=== PATIENT | female | born 1990 | race Two or more races ===

== ENCOUNTER 2017-11-10 22:33 | Emergency (ER) | payer MEDICAID, OTHER ==
[~2017-11-10] VITALS: Ht 162.6 cm; Wt 110.5 kg
[~2017-11-10 22:33] MED LIST: ACET-1008 PO; ALBU8.5H8 IH; AZIT250T PO; IBUP-1984 PO; NITR0.4T51 SL
[2017-11-10 22:46] VITALS: BP 121/66
[2017-11-10] MEDS ORDERED: NEOM28.44 TP (23:31)
== END 2017-11-10 23:39 | disposition home or self-care (01) ==
LOC: ER 22:33
DX: T21.22XA Burn of second degree of abdominal wall, initial encounter (principal); J45.909 Unspecified asthma, uncomplicated; I25.2 Old myocardial infarction; Z90.49 Acquired absence of other specified parts of digestive tract; Z88.8 Allergy status to other drugs, medicaments and biological substances; Z79.899 Other long term (current) drug therapy; X10.2XXA Contact with fats and cooking oils, initial encounter; Y93.G3 Activity, cooking and baking; Y92.000 Kitchen of unspecified non-institutional (private) residence as the place of occurrence of the external cause; Y99.8 Other external cause status
CPT/HCPCS: 99283

== ENCOUNTER 2018-12-18 16:42 | Emergency (ER) | payer SELFPAY ==
[~2018-12-18] VITALS: Ht 162.6 cm; Wt 116.8 kg
[~2018-12-18 16:42] MED LIST changes: +NEOM28.44 TP
[2018-12-18 16:49] VITALS: BP 135/86
[2018-12-18] MEDS ORDERED: fluconazole 150mg tablet PO ONE (17:05)
[2018-12-18 17:20] LABS: URINE HCG NEGATIVE (NEG)
[2018-12-18 17:23] LABS: CLARITY,URINE SLIGHTLY CLOUDY (Clear); COLOR,URINE YELLOW (Yellow); GLUCOSE, URINE NEGATIVE (Neg); KETONES,URINE NEGATIVE (Neg); LEUKOCYTE ESTERASE ,URINE LARGE (Neg); NITRITES, URINE NEGATIVE (Neg); OCCULT BLOOD,URINE TRACE-INTACT (Neg); PH,URINE 5.5 (4.8-8.0); PROTEIN,URINE NEGATIVE (Neg); UROBILINOGEN,URINE 0.2 E.U/dL (0.2-1.0)
[2018-12-18 17:26] LABS: UA COLLECTION TYPE CLN CATCH MIDSTREAM
[2018-12-18 17:33] LABS: SQUAMOUS EPITHELIAL CELL,UR MANY /LPF (FEW)
[2018-12-18 17:37] LABS: BACTERIA,URINE 1+ /HPF (Neg)
[2018-12-18 17:38] LABS: RBC,URINE 0-2 /HPF (0-2)
[2018-12-18] MEDS ORDERED: PHEN-824 PO (17:46)
[2018-12-18] MEDS ORDERED: FLUC150T66 PO (17:46)
== END 2018-12-18 18:01 | disposition home or self-care (01) ==
LOC: ER 16:42
DX: N89.8 Other specified noninflammatory disorders of vagina (principal); I25.2 Old myocardial infarction; J45.909 Unspecified asthma, uncomplicated; F10.99 Alcohol use, unspecified with unspecified alcohol-induced disorder; Z90.49 Acquired absence of other specified parts of digestive tract; Z98.890 Other specified postprocedural states; Z88.8 Allergy status to other drugs, medicaments and biological substances; Z79.899 Other long term (current) drug therapy; Y90.9 Presence of alcohol in blood, level not specified
CPT/HCPCS: 81001; 81025; 99283

== ENCOUNTER 2019-11-03 21:35 | Emergency (ER) | payer SELFPAY ==
[~2019-11-03] VITALS: Ht 162.6 cm; Wt 121.4 kg
[~2019-11-03 21:35] MED LIST changes: +PHEN-824 PO
[2019-11-03] MEDS ORDERED: diphenhydrAMINE 50 mg/ml inj IM ONE (21:50)
[2019-11-03 22:45] VITALS: BP 150/93
== END 2019-11-03 23:21 | disposition home or self-care (01) ==
LOC: ER 21:39
DX: T78.40XA Allergy, unspecified, initial encounter (principal); R20.0 Anesthesia of skin; R22.9 Localized swelling, mass and lump, unspecified; I25.2 Old myocardial infarction; J45.909 Unspecified asthma, uncomplicated; Z90.49 Acquired absence of other specified parts of digestive tract; Z98.890 Other specified postprocedural states; Z72.89 Other problems related to lifestyle; Z88.8 Allergy status to other drugs, medicaments and biological substances; Z79.2 Long term (current) use of antibiotics; Z79.899 Other long term (current) drug therapy
CPT/HCPCS: 96372; 99283; J1200

== ENCOUNTER 2020-06-15 18:02 | Emergency (ER) | payer OTHER ==
[~2020-06-15] VITALS: Ht 162.6 cm; Wt 112.4 kg
[2020-06-15 18:10] VITALS: BP 118/91
== END 2020-06-15 19:13 | disposition home or self-care (01) ==
LOC: ER 18:03
DX: Z02.89 Encounter for other administrative examinations (principal); R11.0 Nausea; I25.2 Old myocardial infarction; J45.909 Unspecified asthma, uncomplicated; Z90.49 Acquired absence of other specified parts of digestive tract; Z98.890 Other specified postprocedural states; Z72.89 Other problems related to lifestyle; Z88.8 Allergy status to other drugs, medicaments and biological substances; Z79.2 Long term (current) use of antibiotics; Z79.899 Other long term (current) drug therapy
CPT/HCPCS: 99281

== ENCOUNTER 2020-06-18 09:25 | Emergency (ER) | payer OTHER ==
[~2020-06-18] VITALS: Ht 162.6 cm; Wt 111.4 kg
--- NOTE | 2020-06-18 09:52 | NUR ---
Spoke with Dr. Mckeon and updated on pt status and pt HR. To place EKG order, to order further work-up
[2020-06-18 10:42] LABS: BASOPHILS # (AUTO) 0.1 X10'3 (0-0.2); BASOPHILS % (AUTO) 0.6 % (0-1); EOSINOPHILS # (AUTO) 0.2 X10'3 (0-0.9); HEMATOCRIT 51.9 % (35.0-45.0); HEMOGLOBIN 17.6 g/dl (12.0-16.0); LYMPHOCYTES # (AUTO) 1.2 X10'3 (1.1-4.8); LYMPHOCYTES % (AUTO) 8.1 % (21-51); MEAN CORPUSCULAR HEMOGLOBIN 29.5 PG (27.0-31.0); MEAN CORPUSCULAR VOLUME 86.9 FL (78-98); MEAN PLATELET VOLUME 10.9 FL (7.4-10.4); MONOCYTES # (AUTO) 1.4 X10'3 (0-0.9); MONOCYTES % (AUTO) 9.3 % (2-12); NEUTROPHILS # (AUTO) 12.2 X10'3 (1.8-7.7); PLATELET COUNT 308 X10'3 (140-440); RED BLOOD COUNT 5.98 X10'6 (4.20-5.60); RED CELL DISTRIBUTION WIDTH 13.5 % (11.5-14.5); WHITE BLOOD COUNT 15.1 X10'3 (4.5-11.0)
[2020-06-18 10:54] LABS: D-DIMER 3.93 MG/L FEU (0-0.50)
[2020-06-18] MEDS ORDERED: metoclopramide 5 mg/ml inj IV ONE (11:00)
[2020-06-18 11:03] LABS: ALANINE AMINOTRANSFERASE 291 U/L (12-78); ALBUMIN 4.2 G/DL (3.4-5.0); ALKALINE PHOSPHATASE 71 IU/L (46-116); ANION GAP 18 (8-16); ASPARTATE AMINO TRANSFERASE 103 U/L (10-37); BILIRUBIN,TOTAL 0.7 MG/DL (0.1-1.0); BLOOD UREA NITROGEN 13 MG/DL (7-18); BUN/CREATININE RATIO 12.3 (6.6-38.0); CALCIUM 9.7 MG/DL (8.5-10.1); CHLORIDE 101 MMOL/L (99-107); CREATININE 1.06 MG/DL (0.40-0.90); GLUCOSE 115 MG/DL (70-104); SODIUM 135 MMOL/L (135-145); TOTAL CARBON DIOXIDE 16.5 MMOL/L (24-32); TOTAL PROTEIN 8.6 G/DL (6.4-8.2); eGFR 60 ML/MIN
[2020-06-18 11:05] LABS: LIPASE 862 U/L (73-393); TROPONIN I < 0.04 NG/ML (0.0-0.05)
[2020-06-18 11:17] LABS: LARGE PLATELETS FEW; PLATELET ESTIMATE NORMAL
[2020-06-18 11:30] LABS: HCG SERUM QL NEGATIVE
[2020-06-18] MEDS ORDERED: iohexol 350MG/ML 100ml bottle IV ONE (11:35)
[2020-06-18 12:35] LABS: CLARITY,URINE CLEAR (Clear); COLOR,URINE YELLOW (Yellow); GLUCOSE, URINE NEGATIVE (Neg); KETONES,URINE >=80 mg/dl (Neg); LEUKOCYTE ESTERASE ,URINE NEGATIVE (Neg); NITRITES, URINE NEGATIVE (Neg); OCCULT BLOOD,URINE TRACE-INTACT (Neg); PROTEIN,URINE 100 mg/dl (Neg); UROBILINOGEN,URINE 0.2 E.U/dL (0.2-1.0)
[2020-06-18 12:38] LABS: UA COLLECTION TYPE CLN CATCH MIDSTREAM
[2020-06-18 12:54] LABS: BACTERIA,URINE FEW /HPF (Neg); HYALINE CASTS 0-3 /LPF (NEGATIVE); RBC,URINE 0-2 /HPF (0-2); SQUAMOUS EPITHELIAL CELL,UR MANY /LPF (FEW); WBC,URINE 0-4 /HPF (0-4)
[2020-06-18 12:55] LABS: MUCUS STRANDS FEW /LPF (Neg)
[2020-06-18] MEDS ORDERED: normal saline 1000ml 1,000 ML IV ONE (13:15)
[2020-06-18] MEDS ORDERED: METO-292 PO (14:06)
[2020-06-18 14:09] VITALS: BP 118/88
== END 2020-06-18 15:40 | disposition home or self-care (01) ==
LOC: ER 09:26
DX: R11.2 Nausea with vomiting, unspecified (principal); R07.89 Other chest pain; R06.02 Shortness of breath; Z20.822 Contact with and (suspected) exposure to COVID-19; I25.2 Old myocardial infarction; J45.909 Unspecified asthma, uncomplicated; Z90.49 Acquired absence of other specified parts of digestive tract; Z98.890 Other specified postprocedural states; Z72.89 Other problems related to lifestyle; Z88.8 Allergy status to other drugs, medicaments and biological substances; Z79.82 Long term (current) use of aspirin; Z79.899 Other long term (current) drug therapy; Z98.84 Bariatric surgery status
CPT/HCPCS: 36415; 71045; 71275; 74177; 80053; 81001; 83690; 83880; 84484; 84703; 85008; 85025; 85379; 87635; 93005; 93308; 96361; 96374; 99285; C9803; J2765; J7030; Q9967

== ENCOUNTER 2020-06-20 14:03 | Emergency (ER) | payer OTHER ==
[~2020-06-20] VITALS: Ht 162.6 cm; Wt 111.4 kg
[~2020-06-20 14:03] MED LIST changes: +METO-292 PO
[2020-06-20 16:51] LABS: BASOPHILS # (AUTO) 0.1 X10'3 (0-0.2); BASOPHILS % (AUTO) 0.6 % (0-1); EOSINOPHILS # (AUTO) 0.2 X10'3 (0-0.9); EOSINOPHILS % (AUTO) 1.1 % (0-6); HEMATOCRIT 47.4 % (35.0-45.0); HEMOGLOBIN 16.3 g/dl (12.0-16.0); LYMPHOCYTES # (AUTO) 1.5 X10'3 (1.1-4.8); LYMPHOCYTES % (AUTO) 10.4 % (21-51); MEAN CORPUSCULAR HEMOGLOBIN 29.1 PG (27.0-31.0); MEAN CORPUSCULAR HGB CONC 34.3 g/dL (33.0-36.5); MEAN CORPUSCULAR VOLUME 84.8 FL (78-98); MEAN PLATELET VOLUME 10.7 FL (7.4-10.4); MONOCYTES # (AUTO) 1.4 X10'3 (0-0.9); MONOCYTES % (AUTO) 9.7 % (2-12); NEUTROPHILS # (AUTO) 11.4 X10'3 (1.8-7.7); NEUTROPHILS % (AUTO) 78.2 % (42-75); PLATELET COUNT 275 X10'3 (140-440); RED BLOOD COUNT 5.59 X10'6 (4.20-5.60); RED CELL DISTRIBUTION WIDTH 13.4 % (11.5-14.5); WHITE BLOOD COUNT 14.6 X10'3 (4.5-11.0)
[2020-06-20 17:01] LABS: ALANINE AMINOTRANSFERASE 307 U/L (12-78); ALKALINE PHOSPHATASE 65 IU/L (46-116); ANION GAP 17 (8-16); ASPARTATE AMINO TRANSFERASE 102 U/L (10-37); BILIRUBIN,TOTAL 0.7 MG/DL (0.1-1.0); BLOOD UREA NITROGEN 14 MG/DL (7-18); BUN/CREATININE RATIO 15.1 (6.6-38.0); CALCIUM 9.5 MG/DL (8.5-10.1); CHLORIDE 105 MMOL/L (99-107); CREATININE 0.93 MG/DL (0.40-0.90); GLUCOSE 114 MG/DL (70-104); LIPASE 810 U/L (73-393); POTASSIUM 3.5 MMOL/L (3.5-5.1); SODIUM 139 MMOL/L (135-145); TOTAL CARBON DIOXIDE 16.6 MMOL/L (24-32); eGFR 70 ML/MIN
[2020-06-20] MEDS ORDERED: proCHLORperazine 10 MG/2 ml inj IV ONE (17:10)
[2020-06-20] MEDS ORDERED: LORazepam 2 mg/ml vial IV ONE (17:10)
[2020-06-20] MEDS ORDERED: normal saline 1000ML IV soln IVB ONE (17:10)
[2020-06-20 17:21] LABS: URINE HCG NEGATIVE (NEG)
[2020-06-20 17:41] LABS: CLARITY,URINE CLOUDY (Clear); GLUCOSE, URINE NEGATIVE (Neg); KETONES,URINE >=80 mg/dl (Neg); LEUKOCYTE ESTERASE ,URINE NEGATIVE (Neg); NITRITES, URINE NEGATIVE (Neg); OCCULT BLOOD,URINE TRACE-INTACT (Neg); PROTEIN,URINE 100 mg/dl (Neg)
[2020-06-20 17:44] LABS: UA COLLECTION TYPE CLN CATCH MIDSTREAM
[2020-06-20 17:45] LABS: COLOR,URINE DARK YELLOW (Yellow)
[2020-06-20 17:51] LABS: BACTERIA,URINE 1+ /HPF (Neg); MUCUS STRANDS MANY /LPF (Neg); RBC,URINE 0-2 /HPF (0-2); SQUAMOUS EPITHELIAL CELL,UR MANY /LPF (FEW)
[2020-06-20 17:54] VITALS: BP 133/83
[2020-06-20] MEDS ORDERED: PROC25SU31 RC (18:03)
[2020-06-20] MEDS ORDERED: CLOT10TR5 PO (19:09)
== END 2020-06-20 19:15 | disposition home or self-care (01) ==
LOC: ER 14:04
DX: R53.83 Other fatigue (principal); R11.2 Nausea with vomiting, unspecified; K91.89 Other postprocedural complications and disorders of digestive system; R10.12 Left upper quadrant pain; I25.2 Old myocardial infarction; J45.909 Unspecified asthma, uncomplicated; Z90.49 Acquired absence of other specified parts of digestive tract; Z98.890 Other specified postprocedural states; Z72.89 Other problems related to lifestyle; Z88.8 Allergy status to other drugs, medicaments and biological substances; Z79.2 Long term (current) use of antibiotics; Z79.899 Other long term (current) drug therapy
CPT/HCPCS: 36415; 80053; 81001; 81025; 83690; 85025; 93005; 96361; 96374; 96375; 99284; J0780; J2060; J7030

== ENCOUNTER 2020-10-02 10:27 | Inpatient (IN) | payer OTHER ==
[2020-10-02] VITALS (8 sets, daily range): BP systolic 109–119; BP diastolic 67–77
[~2020-10-02] VITALS: Ht 162.6 cm; Wt 89.7 kg
[2020-10-02 11:14] LABS: BASOPHILS % (AUTO) 0.4 % (0-1); EOSINOPHILS # (AUTO) 0.1 X10'3 (0-0.9); EOSINOPHILS % (AUTO) 2.1 % (0-6); HEMATOCRIT 40.4 % (35.0-45.0); HEMOGLOBIN 13.5 g/dl (12.0-16.0); LYMPHOCYTES # (AUTO) 1.1 X10'3 (1.1-4.8); LYMPHOCYTES % (AUTO) 19.9 % (21-51); MEAN CORPUSCULAR HEMOGLOBIN 30.3 PG (27.0-31.0); MEAN CORPUSCULAR HGB CONC 33.4 g/dL (33.0-36.5); MEAN CORPUSCULAR VOLUME 90.7 FL (78-98); MEAN PLATELET VOLUME 11.2 FL (7.4-10.4); MONOCYTES # (AUTO) 0.6 X10'3 (0-0.9); MONOCYTES % (AUTO) 10.2 % (2-12); NEUTROPHILS # (AUTO) 3.9 X10'3 (1.8-7.7); NEUTROPHILS % (AUTO) 67.4 % (42-75); PLATELET COUNT 155 X10'3 (140-440); RED BLOOD COUNT 4.45 X10'6 (4.20-5.60); RED CELL DISTRIBUTION WIDTH 15.2 % (11.5-14.5); WHITE BLOOD COUNT 5.7 X10'3 (4.5-11.0)
[2020-10-02] MEDS ORDERED: nitroGLYCERIN 0.4mg SUBLingual tab SL PRN (11:30)
[2020-10-02] MEDS ORDERED: aspirin 325mg tablet PO ONE (11:45)
[2020-10-02 11:48] LABS: ALANINE AMINOTRANSFERASE 46 U/L (12-78); ALBUMIN 3.3 G/DL (3.4-5.0); ALKALINE PHOSPHATASE 59 IU/L (46-116); ANION GAP 11 (8-16); ASPARTATE AMINO TRANSFERASE 51 U/L (10-37); BILIRUBIN,TOTAL 0.9 MG/DL (0.1-1.0); BLOOD UREA NITROGEN 7 MG/DL (7-18); BUN/CREATININE RATIO 13.7 (6.6-38.0); CALCIUM 8.9 MG/DL (8.5-10.1); CHLORIDE 107 MMOL/L (99-107); CREATININE 0.51 MG/DL (0.40-0.90); GLUCOSE 90 MG/DL (70-104); LIPASE 119 U/L (73-393); SODIUM 140 MMOL/L (135-145); TOTAL CARBON DIOXIDE 21.8 MMOL/L (24-32); TOTAL PROTEIN 6.5 G/DL (6.4-8.2); eGFR > 90 ML/MIN
[2020-10-02] MEDS ORDERED: heparin 25,000 UNIT/250ml bag 250 ML IV SCH (11:50)
[2020-10-02] MEDS ORDERED: heparin 10,000 units/1 ML INJ IV ONE ×2 (11:50→11:55)
[2020-10-02] MEDS ORDERED: heparin 10,000 units/1 ML INJ IV PRN (11:50)
[2020-10-02 11:53] LABS: POTASSIUM 2.9 MMOL/L (3.5-5.1)
[2020-10-02] MEDS ORDERED: nitroGLYCERIN-Tridil 50MG/D5W 250 ML IV PRN (11:55)
[2020-10-02] MEDS ORDERED: potassium Cl 10 mEq/100mL bag IV ONE (11:55)
[2020-10-02] MEDS ORDERED: NO HOME MEDS (12:23)
[2020-10-02 12:31] LABS: PARTIAL THROMBOPLASTIN TIME 27 SECONDS (22-32)
--- NOTE | 2020-10-02 14:30 | NUR ---
spoke to Flores re: need for nitro and no line, stopped potassium for now, for critical drips
[2020-10-02] MEDS ORDERED: heparin 1,000unit/ml 10ml vial 10 ML ONE (14:53)
[2020-10-02] MEDS ORDERED: fentaNYL/PF 50MCG/1 ML 2ML syringe ONE (14:53)
[2020-10-02] MEDS ORDERED: iohexol 350 MG/1 ML 200ml bottle ONE (14:53)
[2020-10-02] MEDS ORDERED: iohexol 350 MG/ML 50ML vial IV ONE (14:53)
[2020-10-02] MEDS ORDERED: midazolam 1 mg/ML 2ml injection ONE ×3 (14:53→15:42)
[2020-10-02] MEDS ORDERED: LIDOcaine 1% (10mg/ml)w/preservative injection 20ml MDV ONE (14:54)
[2020-10-02] MEDS ORDERED: potassium Cl 20 mEq SR tablet PO ONE (15:00)
[2020-10-02] MEDS ORDERED: potassium Cl 40MEQ/1/2NS 520ml 520 ML IV PRN ×2 (15:05)
[2020-10-02] MEDS ORDERED: magnesium 4gm in 100ml NS 100 ML IV PRN (15:05)
[2020-10-02] MEDS ORDERED: magnesium 2GM in 50ml NS 50 ML IV PRN (15:05)
[2020-10-02] MEDS ORDERED: mag hydrox/Alum hydrox/simeth 30ml oral suspension PO PRN (15:05)
[2020-10-02] MEDS ORDERED: magnesium hydroxide 30ml (MOM) UD suspension PO PRN (15:05)
[2020-10-02] MEDS ORDERED: HYDROcodone/acetaminophen 5mg/325mg tablet PO PRN (15:05)
[2020-10-02] MEDS ORDERED: diphenhydrAMINE 25mg capsule PO PRN (15:05)
[2020-10-02] MEDS ORDERED: magnesium Cl slow-release 64mg tablet PO PRN (15:05)
[2020-10-02] MEDS ORDERED: morphine 2 MG/ML inj. syringe IV PRN ×2 (15:05→21:10)
[2020-10-02] MEDS ORDERED: HYDROcodone/acetaminophen 10/325mg tab PO PRN (15:05)
[2020-10-02] MEDS: tirofiban 5mg in NS 100mL 100 ML IV SCH ×2 (15:05→21:17)
[2020-10-02] MEDS ORDERED: acetaminophen 325mg tablet PO PRN ×2 (15:05)
[2020-10-02] MEDS ORDERED: potassium Cl 20 mEq SR tablet PO PRN ×2 (15:05)
[2020-10-02] MEDS: normal saline 1000ml 1,000 ML IV SCH (15:05)
[2020-10-02] MEDS ORDERED: bisacodyl 10mg suppository rectal RC PRN (15:05)
[2020-10-02] MEDS ORDERED: acetaminophen 650mg rectal suppository RC PRN (15:05)
[2020-10-02 15:15] LABS: MAGNESIUM 1.6 MG/DL (1.5-2.4)
[2020-10-02 15:24] LABS: HEMOGLOBIN A1C 5.4 % (4.5-6.2)
--- NOTE | 2020-10-02 15:45 | NUR ---
Patient in room ED 9. I have received report from cordell fritz rn and had the opportunity to ask questions and assume patient care.
--- NOTE | 2020-10-02 16:30 | NUR ---
received pt from quality lab technician,received report from quality lab technician rn, femstop in place to right groin, no bleeding noted,pressure at 55, pedal pulses present to right foot, ns @ 200/hr started, pt aware need to lie flat for 6 hours, call gastelum in hand, will cont to moniter closely
[2020-10-02] MEDS ORDERED: proCHLORperazine 10 MG/2 ml inj IV PRN (16:55)
--- NOTE | 2020-10-02 18:33 | NUR ---
Problems reprioritized. Patient report given, questions answered & plan of care reviewed with raulito blair.
[2020-10-02] MEDS: morphine 2 MG/ML inj. syringe IV PRN ×2 (19:38→21:03)
[2020-10-02] MEDS: K and/or MAG REPLACEMENT MC SCH (20:36)
--- NOTE | 2020-10-02 21:00 | NUR ---
small hematoma was assessed and noted , internet designer krunal and i were able to put manual pressure and massage the area until softened. patient is stable and pain relieve is administer , dr. Pereyra is aware of this
[2020-10-03 01:19] LABS: CLARITY,URINE CLEAR (Clear); COLOR,URINE YELLOW (Yellow); GLUCOSE, URINE NEGATIVE (Neg); KETONES,URINE >=80 mg/dl (Neg); LEUKOCYTE ESTERASE ,URINE NEGATIVE (Neg); NITRITES, URINE NEGATIVE (Neg); OCCULT BLOOD,URINE SMALL (Neg); PH,URINE 6.5 (4.8-8.0); PROTEIN,URINE NEGATIVE (Neg)
[2020-10-03 01:25] LABS: URINE AMPHETAMINE SCREEN NEGATIVE (Neg); URINE BARBITUATE SCREEN NEGATIVE (Neg); URINE BENZODIAZEPINES SCREEN POSITIVE (Neg); URINE CANNABINOID SCREEN NEGATIVE (Neg); URINE COCAINE SCREEN NEGATIVE (Neg); URINE METHADONE SCREEN NEGATIVE (Neg); URINE OPIATE SCREEN POSITIVE (Neg); URINE PHENCYCLIDINE SCREEN NEGATIVE (Neg)
[2020-10-03 01:26] LABS: UA COLLECTION TYPE CLN CATCH MIDSTREAM
[2020-10-03 01:29] LABS: BACTERIA,URINE NONE SEEN /HPF (Neg); RBC,URINE NONE SEEN /HPF (0-2); SQUAMOUS EPITHELIAL CELL,UR FEW /LPF (FEW); WBC,URINE 0-4 /HPF (0-4)
[2020-10-03 02:00] VITALS: BP 94/58
[2020-10-03 02:04] LABS: URINE HCG NEGATIVE (NEG)
[2020-10-03] MEDS: tirofiban 5mg in NS 100mL 100 ML IV SCH ×2 (03:29→09:41)
[2020-10-03] MEDS: normal saline 1000ml 1,000 ML IV SCH (04:25)
[2020-10-03 06:00] VITALS: BP 103/66
[2020-10-03 06:09] LABS: BASOPHILS % (AUTO) 0.4 % (0-1); EOSINOPHILS # (AUTO) 0.1 X10'3 (0-0.9); EOSINOPHILS % (AUTO) 2.3 % (0-6); HEMOGLOBIN 11.3 g/dl (12.0-16.0); LYMPHOCYTES # (AUTO) 1.2 X10'3 (1.1-4.8); LYMPHOCYTES % (AUTO) 18.3 % (21-51); MEAN CORPUSCULAR HEMOGLOBIN 30.9 PG (27.0-31.0); MEAN CORPUSCULAR HGB CONC 34.1 g/dL (33.0-36.5); MEAN CORPUSCULAR VOLUME 90.8 FL (78-98); MEAN PLATELET VOLUME 11.1 FL (7.4-10.4); MONOCYTES # (AUTO) 0.7 X10'3 (0-0.9); MONOCYTES % (AUTO) 10.6 % (2-12); NEUTROPHILS # (AUTO) 4.5 X10'3 (1.8-7.7); NEUTROPHILS % (AUTO) 68.4 % (42-75); PLATELET COUNT 128 X10'3 (140-440); RED BLOOD COUNT 3.64 X10'6 (4.20-5.60); RED CELL DISTRIBUTION WIDTH 15.2 % (11.5-14.5); WHITE BLOOD COUNT 6.6 X10'3 (4.5-11.0)
[2020-10-03 06:22] LABS: ALANINE AMINOTRANSFERASE 54 U/L (12-78); ALBUMIN 2.7 G/DL (3.4-5.0); ALBUMIN/GLOBULIN RATIO 1.1 (1.1-1.5); ALKALINE PHOSPHATASE 54 IU/L (46-116); ANION GAP 10 (8-16); ASPARTATE AMINO TRANSFERASE 78 U/L (10-37); BILIRUBIN,TOTAL 0.8 MG/DL (0.1-1.0); BLOOD UREA NITROGEN 6 MG/DL (7-18); CALCIUM 8.1 MG/DL (8.5-10.1); CHLORIDE 112 MMOL/L (99-107); CHOL/HDL RATIO 2.3 (0.00-4.99); CHOLESTEROL 89 MG/DL (0-200); GLUCOSE 83 MG/DL (70-104); HDL CHOLESTEROL 39 MG/DL (35-60); LDL CHOLESTEROL 41 MG/DL (50-100); MAGNESIUM 1.8 MG/DL (1.5-2.4); PHOSPHORUS 3.9 MG/DL (2.3-4.5); POTASSIUM 3.2 MMOL/L (3.5-5.1); SODIUM 143 MMOL/L (135-145); TOTAL CARBON DIOXIDE 20.8 MMOL/L (24-32); TOTAL PROTEIN 5.2 G/DL (6.4-8.2); TRIGLYCERIDES 57 MG/DL (20-135); eGFR > 90 ML/MIN
--- NOTE | 2020-10-03 06:30 | NUR ---
Patient in room MED 314. I have received report from Davis DENNISON and had the opportunity to ask questions and assume patient care.
[2020-10-03] MEDS: K and/or MAG REPLACEMENT MC SCH (08:00)
[2020-10-03] MEDS ORDERED: aspirin 81mg tab.chew PO SCH (08:30)
[2020-10-03] MEDS ORDERED: AMLO5TAB16 PO (10:17)
[2020-10-03] MEDS ORDERED: NITR0.4T51 SL (10:17)
[2020-10-03] MEDS ORDERED: POTA20TA19 PO (13:48)
== END 2020-10-03 13:30 | disposition home or self-care (01) | DRG 282 ==
LOC: ER 10:27 → ED HOLD 15:05 → MED 3N 16:24
PROVIDERS: ADMIT Family Medicine; ATTEND Family Medicine
PROC: 4A023N7 Measurement of Cardiac Sampling and Pressure, Left Heart, Percutaneous Approach (ICD-10-PCS; principal; 2020-10-02)
PROC: B2111ZZ Fluoroscopy of Multiple Coronary Arteries using Low Osmolar Contrast (ICD-10-PCS; 2020-10-02)
PROC: B2151ZZ Fluoroscopy of Left Heart using Low Osmolar Contrast (ICD-10-PCS; 2020-10-02)
DX: I21.4 Non-ST elevation (NSTEMI) myocardial infarction (principal); E87.6 Hypokalemia; I20.1 Angina pectoris with documented spasm; J45.909 Unspecified asthma, uncomplicated; Z80.49 Family history of malignant neoplasm of other genital organs; I25.2 Old myocardial infarction; Z82.0 Family history of epilepsy and other diseases of the nervous system; Z90.49 Acquired absence of other specified parts of digestive tract; Z98.84 Bariatric surgery status; Z88.8 Allergy status to other drugs, medicaments and biological substances
CPT/HCPCS: 36415; 71045; 80053; 80061; 80305; 81001; 81025; 83036; 83690; 83735; 83880; 84100; 84484; 85025; 85610; 85730; 87081; 93005; 93306; 93458; 96374; 96375; 99152; 99291; A4620; A6258; C1760; C1769; C1894; G0378; J1644; J2001; J2250; J2270; J3010; J3480; J3490; J7030; Q9967

== ENCOUNTER 2021-05-31 07:37 | Emergency (ER) | payer OTHER ==
[~2021-05-31] VITALS: Ht 162.6 cm; Wt 62.7 kg
[~2021-05-31 07:37] MED LIST changes: -ACET-1008 PO; -ALBU8.5H8 IH; +AMLO5TAB16 PO; -AZIT250T PO; -IBUP-1984 PO; -METO-292 PO; -NEOM28.44 TP; -PHEN-824 PO
[2021-05-31 08:28] VITALS: BP 129/93
== END 2021-05-31 10:30 | disposition home or self-care (01) ==
LOC: ER 07:37
DX: B34.9 Viral infection, unspecified (principal); Z20.822 Contact with and (suspected) exposure to COVID-19; I25.2 Old myocardial infarction; J45.909 Unspecified asthma, uncomplicated; Z90.49 Acquired absence of other specified parts of digestive tract; Z98.84 Bariatric surgery status; Z98.891 History of uterine scar from previous surgery; Z72.89 Other problems related to lifestyle; Z88.8 Allergy status to other drugs, medicaments and biological substances; Z79.899 Other long term (current) drug therapy
CPT/HCPCS: 87635; 99283; C9803

== ENCOUNTER 2022-02-25 19:34 | Emergency (ER) | payer OTHER ==
[~2022-02-25] VITALS: Ht 162.6 cm; Wt 62.0 kg
[2022-02-25] MEDS ORDERED: loratadine 10mg tablet PO STA (20:51)
[2022-02-25] MEDS ORDERED: famotidine 20mg tablet PO ONE (20:55)
[2022-02-25] MEDS ORDERED: predniSONE 20 mg tablet PO ONE (20:55)
[2022-02-25] MEDS ORDERED: EPIN0.3P3 IM (21:06)
[2022-02-25] MEDS ORDERED: PRED20TA PO (21:06)
[2022-02-25 21:57] VITALS: BP 123/78
== END 2022-02-25 21:59 | disposition home or self-care (01) ==
LOC: ER 19:34
DX: T78.49XA Other allergy, initial encounter (principal); Z88.6 Allergy status to analgesic agent; Z79.899 Other long term (current) drug therapy
CPT/HCPCS: 99284; J7512

== ENCOUNTER 2024-02-23 19:57 | Emergency (ER) | payer MEDICAID, OTHER ==
[~2024-02-23] VITALS: Ht 162.6 cm; Wt 62.9 kg
[~2024-02-23 19:57] MED LIST changes: +EPIN0.3P3 IM
[2024-02-23 20:43] LABS: BASOPHILS # (AUTO) 0.1 X10'3 (0-0.2); BASOPHILS % (AUTO) 1.1 % (0-1); EOSINOPHILS # (AUTO) 0.2 X10'3 (0-0.9); EOSINOPHILS % (AUTO) 2.9 % (0-6); HEMOGLOBIN 7.7 g/dl (12.0-16.0); LYMPHOCYTES # (AUTO) 1.6 X10'3 (1.1-4.8); LYMPHOCYTES % (AUTO) 30.4 % (21-51); MEAN CORPUSCULAR HEMOGLOBIN 19.5 PG (27.0-31.0); MEAN CORPUSCULAR HGB CONC 29.7 g/dL (33.0-36.5); MEAN CORPUSCULAR VOLUME 65.8 FL (78-98); MEAN PLATELET VOLUME 9.9 FL (7.4-10.4); MONOCYTES # (AUTO) 0.5 X10'3 (0-0.9); MONOCYTES % (AUTO) 8.4 % (2-12); NEUTROPHILS # (AUTO) 3.1 X10'3 (1.8-7.7); NEUTROPHILS % (AUTO) 57.2 % (42-75); PLATELET COUNT 210 X10'3 (140-440); RED BLOOD COUNT 3.96 X10'6 (4.20-5.60); RED CELL DISTRIBUTION WIDTH 18.1 % (11.5-14.5); WHITE BLOOD COUNT 5.4 X10'3 (4.5-11.0)
[2024-02-23 20:54] LABS: ALANINE AMINOTRANSFERASE 37 U/L (12-78); ALBUMIN 3.4 G/DL (3.4-5.0); ALKALINE PHOSPHATASE 102 IU/L (46-116); ANION GAP 9 (8-16); ASPARTATE AMINO TRANSFERASE 26 U/L (10-37); BILIRUBIN,TOTAL 0.2 MG/DL (0.1-1.0); BLOOD UREA NITROGEN 13 MG/DL (7-18); BUN/CREATININE RATIO 17.8 (10.0-20.0); CHLORIDE 109 MMOL/L (99-107); CREATININE 0.73 MG/DL (0.40-0.90); GLUCOSE 88 MG/DL (70-104); LIPASE 53 U/L (16-77); POTASSIUM 4.3 MMOL/L (3.5-5.1); SODIUM 142 MMOL/L (135-145); TOTAL CARBON DIOXIDE 24.1 MMOL/L (24-32); TOTAL PROTEIN 6.7 G/DL (6.4-8.2); eCRCL 93 ML/MIN; eGFR > 90 ML/MIN
[2024-02-23 21:01] LABS: BILIRUBIN,URINE NEGATIVE (Neg); CLARITY,URINE CLEAR (Clear); COLOR,URINE YELLOW (Yellow); GLUCOSE, URINE NEGATIVE (Neg); KETONES,URINE NEGATIVE (Neg); LEUKOCYTE ESTERASE ,URINE NEGATIVE (Neg); NITRITES, URINE NEGATIVE (Neg); OCCULT BLOOD,URINE SMALL (Neg); PROTEIN,URINE NEGATIVE (Neg); URINE HCG NEGATIVE (NEG)
[2024-02-23 21:09] LABS: UA COLLECTION TYPE CLN CATCH MIDSTREAM
[2024-02-23 21:11] LABS: BACTERIA,URINE NONE SEEN /HPF (Neg); MUCUS STRANDS FEW /LPF (Neg); SQUAMOUS EPITHELIAL CELL,UR FEW /LPF (FEW); WBC,URINE 0-4 /HPF (0-4)
[2024-02-23 21:16] LABS: ANISOCYTOSIS 2+; MICROCYTOSIS 2+; PLATELET ESTIMATE NORMAL
[2024-02-23 21:18] LABS: BURR CELLS FEW; ELLIPTOCYTES FEW; HYPOCHROMASIA 1+
[2024-02-23 21:19] LABS: LARGE PLATELETS FEW
[2024-02-24] MEDS: ketorolac trometh 15mg/ml vial 15 MG/ML ML IV ONE (01:45)
[2024-02-24] MEDS: proCHLORperazine 10 MG/2 ml inj IV ONE (01:46)
[2024-02-24] MEDS: acetaminophen 1,000mg/100ml IV 100 ML IV ONE (01:46)
[2024-02-24] MEDS: normal saline 1000ml 1,000 ML IV ONE (01:46)
[2024-02-24 02:58] VITALS: BP 115/79; PULSE 50; RESP 16; TEMP 99; O2SAT 98
== END 2024-02-24 03:00 | disposition home or self-care (01) ==
LOC: ER 20:02
DX: R51.9 Headache, unspecified (principal); D64.9 Anemia, unspecified; J45.909 Unspecified asthma, uncomplicated; I25.2 Old myocardial infarction; Z88.8 Allergy status to other drugs, medicaments and biological substances; Z79.899 Other long term (current) drug therapy; Z90.49 Acquired absence of other specified parts of digestive tract
CPT/HCPCS: 36415; 80053; 81001; 81025; 83690; 85008; 85025; 96365; 96375; 99285; J0131; J0780; J1885; J7030

== ENCOUNTER 2024-06-20 18:09 | Emergency (ER) | payer MEDICAID ==
[~2024-06-20] VITALS: Ht 162.6 cm; Wt 65.0 kg
[2024-06-20 19:04] LABS: BASOPHILS % (AUTO) 0.6 % (0-1); EOSINOPHILS % (AUTO) 0 % (0-6); HEMATOCRIT 40.1 % (35.0-45.0); HEMOGLOBIN 13.3 g/dl (12.0-16.0); LYMPHOCYTES # (AUTO) 0.3 X10'3 (1.1-4.8); LYMPHOCYTES % (AUTO) 4.3 % (21-51); MEAN CORPUSCULAR HEMOGLOBIN 27.8 PG (27.0-31.0); MEAN CORPUSCULAR HGB CONC 33.2 g/dL (33.0-36.5); MEAN CORPUSCULAR VOLUME 83.6 FL (78-98); MONOCYTES % (AUTO) 0.6 % (2-12); NEUTROPHILS # (AUTO) 5.8 X10'3 (1.8-7.7); NEUTROPHILS % (AUTO) 94.5 % (42-75); PLATELET COUNT 177 X10'3 (140-440); RED CELL DISTRIBUTION WIDTH 14.6 % (11.5-14.5); WHITE BLOOD COUNT 6.1 X10'3 (4.5-11.0)
[2024-06-20 20:07] LABS: ALANINE AMINOTRANSFERASE 27 U/L (12-78); ALBUMIN/GLOBULIN RATIO 1.1 (1.1-1.5); ALKALINE PHOSPHATASE 113 IU/L (46-116); ANION GAP 10 (8-16); ASPARTATE AMINO TRANSFERASE 16 U/L (10-37); BILIRUBIN,TOTAL 0.4 MG/DL (0.1-1.0); BLOOD UREA NITROGEN 11 MG/DL (7-18); BUN/CREATININE RATIO 15.5 (10.0-20.0); CALCIUM 8.7 MG/DL (8.5-10.1); CHLORIDE 108 MMOL/L (99-107); CREATININE 0.71 MG/DL (0.40-0.90); GLUCOSE 206 MG/DL (70-104); POTASSIUM 4.1 MMOL/L (3.5-5.1); SODIUM 140 MMOL/L (135-145); TOTAL CARBON DIOXIDE 21.9 MMOL/L (24-32); TOTAL PROTEIN 7.5 G/DL (6.4-8.2); eCRCL 95 ML/MIN; eGFR > 90 ML/MIN
[2024-06-20 20:14] LABS: PRO BRAIN NATRIURETIC PEPTIDE 45 PG/ML (0-125)
[2024-06-20] MEDS ORDERED: metoclopramide 10mg/10 ml UD oral solution PO PRN (22:20)
[2024-06-20] MEDS ORDERED: METO10TA3 PO (22:22)
[2024-06-20] MEDS: diphenhydrAMINE 25mg capsule PO ONE (22:26)
[2024-06-20] MEDS: metoclopramide 10mg tablet PO PRN (22:31)
[2024-06-20 22:34] VITALS: BP 119/73; PULSE 76; RESP 16; TEMP 98.3; O2SAT 98
== END 2024-06-20 22:37 | disposition home or self-care (01) ==
LOC: ER 18:10
DX: R07.9 Chest pain, unspecified (principal); J45.909 Unspecified asthma, uncomplicated; Z88.8 Allergy status to other drugs, medicaments and biological substances; Z90.49 Acquired absence of other specified parts of digestive tract; Z98.84 Bariatric surgery status; Z98.890 Other specified postprocedural states
CPT/HCPCS: 36415; 71045; 80053; 83880; 84484; 85025; 93005; 99285; Q0163

== ENCOUNTER 2024-07-07 23:06 | Emergency (ER) | payer MEDICAID ==
[~2024-07-07] VITALS: Ht 162.6 cm; Wt 60.1 kg
[~2024-07-07 23:06] MED LIST changes: +METO10TA3 PO
[2024-07-07 23:22] VITALS: TEMP 98.5
[2024-07-07] MEDS ORDERED: iohexol 350MG/ML 100ml bottle IV ONE (23:53)
[2024-07-08 00:08] LABS: BASOPHILS % (AUTO) 0.1 % (0-1); EOSINOPHILS % (AUTO) 0 % (0-6); HEMATOCRIT 37.7 % (35.0-45.0); HEMOGLOBIN 12.7 g/dl (12.0-16.0); LYMPHOCYTES # (AUTO) 0.2 X10'3 (1.1-4.8); LYMPHOCYTES % (AUTO) 3.9 % (21-51); MEAN CORPUSCULAR HEMOGLOBIN 28.7 PG (27.0-31.0); MEAN CORPUSCULAR HGB CONC 33.6 g/dL (33.0-36.5); MEAN CORPUSCULAR VOLUME 85.3 FL (78-98); MEAN PLATELET VOLUME 9.4 FL (7.4-10.4); MONOCYTES % (AUTO) 0.7 % (2-12); NEUTROPHILS % (AUTO) 95.3 % (42-75); PLATELET COUNT 162 X10'3 (140-440); RED BLOOD COUNT 4.42 X10'6 (4.20-5.60); RED CELL DISTRIBUTION WIDTH 14.7 % (11.5-14.5); WHITE BLOOD COUNT 5.3 X10'3 (4.5-11.0)
[2024-07-08] MEDS ORDERED: iohexol 350MG/ML 100ml bottle IV ONE (00:08)
[2024-07-08 00:23] LABS: ALBUMIN 3.8 G/DL (3.4-5.0); ANION GAP 9 (8-16); BLOOD UREA NITROGEN 11 MG/DL (7-18); BUN/CREATININE RATIO 16.7 (10.0-20.0); CALCIUM 8.8 MG/DL (8.5-10.1); CHLORIDE 105 MMOL/L (99-107); CREATININE 0.66 MG/DL (0.40-0.90); GLUCOSE 235 MG/DL (70-104); SODIUM 136 MMOL/L (135-145); eCRCL 102 ML/MIN; eGFR > 90 ML/MIN
[2024-07-08 00:50] LABS: PROTHROMBIN TIME 10.8 SECONDS (9.0-12.0)
[2024-07-08] MEDS: proCHLORperazine 10 MG/2 ml inj IV ONE (01:16)
[2024-07-08] MEDS: morphine 4 MG/ML inj SYRINge IV ONE (01:18)
[2024-07-08 01:30] LABS: HCG SERUM QL NEGATIVE
[2024-07-08 05:27] VITALS: BP 107/75; PULSE 86; RESP 15; O2SAT 98
== END 2024-07-08 05:29 | disposition home or self-care (01) ==
LOC: ER 23:06
DX: S60.221A Contusion of right hand, initial encounter (principal); I25.2 Old myocardial infarction; J45.909 Unspecified asthma, uncomplicated; Z90.49 Acquired absence of other specified parts of digestive tract; Z88.8 Allergy status to other drugs, medicaments and biological substances; Z79.899 Other long term (current) drug therapy; Z72.89 Other problems related to lifestyle; Z98.890 Other specified postprocedural states; X58.XXXA Exposure to other specified factors, initial encounter; Y93.89 Activity, other specified; Y92.89 Other specified places as the place of occurrence of the external cause; Y99.8 Other external cause status
CPT/HCPCS: 36415; 73206; 80048; 84703; 85025; 85610; 93971; 96374; 96375; 99285; J0780; J2270; Q9967

== ENCOUNTER 2024-07-28 07:34 | Emergency (ER) | payer MEDICAID ==
[~2024-07-28] VITALS: Ht 162.6 cm; Wt 65.3 kg
[~2024-07-28 07:34] MED LIST changes: -METO10TA3 PO
[2024-07-28 07:36] VITALS: TEMP 98.2
[2024-07-28 08:00] LABS: BILIRUBIN,URINE NEGATIVE (Neg); CLARITY,URINE CLEAR (Clear); COLOR,URINE YELLOW (Yellow); GLUCOSE, URINE NEGATIVE (Neg); KETONES,URINE TRACE mg/dl (Neg); LEUKOCYTE ESTERASE ,URINE NEGATIVE (Neg); NITRITES, URINE NEGATIVE (Neg); OCCULT BLOOD,URINE NEGATIVE (Neg); PH,URINE 5.5 (4.8-8.0); PROTEIN,URINE NEGATIVE (Neg)
[2024-07-28 08:03] LABS: URINE HCG NEGATIVE (NEG)
[2024-07-28 08:03] LABS: BASOPHILS % (AUTO) 0.2 % (0-1); EOSINOPHILS # (AUTO) 0.1 X10'3 (0-0.9); EOSINOPHILS % (AUTO) 0.6 % (0-6); HEMOGLOBIN 13.4 g/dl (12.0-16.0); LYMPHOCYTES # (AUTO) 1.1 X10'3 (1.1-4.8); LYMPHOCYTES % (AUTO) 8.2 % (21-51); MEAN CORPUSCULAR HEMOGLOBIN 29.7 PG (27.0-31.0); MEAN CORPUSCULAR HGB CONC 33.6 g/dL (33.0-36.5); MEAN CORPUSCULAR VOLUME 88.3 FL (78-98); MEAN PLATELET VOLUME 9.4 FL (7.4-10.4); MONOCYTES # (AUTO) 0.8 X10'3 (0-0.9); MONOCYTES % (AUTO) 6.4 % (2-12); NEUTROPHILS # (AUTO) 10.8 X10'3 (1.8-7.7); NEUTROPHILS % (AUTO) 84.6 % (42-75); PLATELET COUNT 151 X10'3 (140-440); RED BLOOD COUNT 4.53 X10'6 (4.20-5.60); RED CELL DISTRIBUTION WIDTH 15.7 % (11.5-14.5); WHITE BLOOD COUNT 12.8 X10'3 (4.5-11.0)
[2024-07-28 08:09] LABS: UA COLLECTION TYPE CLN CATCH MIDSTREAM
[2024-07-28 08:12] LABS: ALANINE AMINOTRANSFERASE 29 U/L (12-78); ALBUMIN 3.6 G/DL (3.4-5.0); ALBUMIN/GLOBULIN RATIO 1.2 (1.1-1.5); ALKALINE PHOSPHATASE 87 IU/L (46-116); ANION GAP 9 (8-16); ASPARTATE AMINO TRANSFERASE 21 U/L (10-37); BLOOD UREA NITROGEN 14 MG/DL (7-18); BUN/CREATININE RATIO 22.2 (10.0-20.0); CALCIUM 8.7 MG/DL (8.5-10.1); CHLORIDE 109 MMOL/L (99-107); CREATININE 0.63 MG/DL (0.40-0.90); GLUCOSE 92 MG/DL (70-104); LIPASE 32 U/L (16-77); POTASSIUM 3.9 MMOL/L (3.5-5.1); SODIUM 142 MMOL/L (135-145); TOTAL CARBON DIOXIDE 24.2 MMOL/L (24-32); TOTAL PROTEIN 6.6 G/DL (6.4-8.2); eCRCL 107 ML/MIN; eGFR > 90 ML/MIN
[2024-07-28] MEDS ORDERED: iohexol 300mg/ml 100ml inj. ONE (09:23)
[2024-07-28] MEDS: HYDROmorphone 1 mg/ml syringe IV ONE (09:56)
[2024-07-28] MEDS: normal saline 1000ML IV soln IVB ONE (09:57)
[2024-07-28] MEDS: bisacodyl 10mg suppository rectal RC ONE (10:37)
[2024-07-28] MEDS: lactulose 20gm/30ml cup PO ONE (10:37)
[2024-07-28 11:32] LABS: URINE AMPHETAMINE SCREEN NEGATIVE (Neg); URINE BARBITUATE SCREEN NEGATIVE (Neg); URINE BENZODIAZEPINES SCREEN NEGATIVE (Neg); URINE CANNABINOID SCREEN NEGATIVE (Neg); URINE COCAINE SCREEN NEGATIVE (Neg); URINE METHADONE SCREEN NEGATIVE (Neg); URINE OPIATE SCREEN NEGATIVE (Neg); URINE PHENCYCLIDINE SCREEN NEGATIVE (Neg)
[2024-07-28 12:58] VITALS: BP 101/66; PULSE 62; RESP 13; O2SAT 95
== END 2024-07-28 13:00 | disposition home or self-care (01) ==
LOC: ER 07:34
DX: K59.00 Constipation, unspecified (principal); E86.0 Dehydration; R10.32 Left lower quadrant pain; I25.2 Old myocardial infarction; J45.909 Unspecified asthma, uncomplicated; Z90.710 Acquired absence of both cervix and uterus; Z90.49 Acquired absence of other specified parts of digestive tract; Z79.899 Other long term (current) drug therapy; Z72.89 Other problems related to lifestyle; Z88.8 Allergy status to other drugs, medicaments and biological substances; Z98.890 Other specified postprocedural states
CPT/HCPCS: 36415; 74177; 80053; 80305; 81003; 81025; 83690; 85025; 96361; 96374; 99285; J1171; J7030; Q9967